=== PATIENT | female | born 1945 | race Caucasian/White ===

== ENCOUNTER 2019-02-19 09:00 | Inpatient (IN) | payer MEDICARE, OTHER ==
[2019-02-19 10:44] VITALS: BP 138/83
[2019-02-19] MEDS ORDERED: Magnesium Hydroxide (MOM) 30 mL UDC PO PRN (13:53)
--- NOTE | 2019-02-19 20:08 | History & Physical ---
ADMIT DATE: 02/19/2019 REQUESTING PHYSICIAN: Dr. Mak. CHIEF COMPLAINT: "I feel depressed and hopeless." HISTORY OF PRESENT ILLNESS: A 74-year-old female with history of hypertension, hyperlipidemia, osteoarthritis, depression, presented to Emergency Room at [facility] with suicidal ideation. The patient was evaluated and medically cleared and subsequently transferred to [facility] for psychiatric treatment. PAST MEDICAL HISTORY: Remarkable for: 1. Hypertension. 2. Hyperlipidemia. 3. Degenerative joint disease. 4. Osteoporosis. 5. Anxiety. 6. Vitamin B12 deficiency. MEDICATIONS AT HOME: She is taking B12, Xanax, atorvastatin, Ambien, carvedilol. ALLERGIES: The patient is not allergic to medication. SOCIAL HISTORY: The patient lives with the family. The patient has no history of smoking cigarette, alcohol, or drug abuse. FAMILY MEDICAL HISTORY: Remarkable for diabetes and hypertension. REVIEW OF SYSTEMS: The patient denies any headache, blurred vision, double vision, dysphagia, odynophagia, runny nose, stuffy nose, fever, chills, cough, chest pain, shortness of breath, palpitation, dizziness, nausea, vomiting, diarrhea, dysuria, hematuria, hematochezia, melena. No history of any seizure or syncopal episode. PHYSICAL EXAMINATION: GENERAL: Alert, awake, oriented, lying in the bed without any acute distress. VITAL SIGNS: Temperature 98.6, pulse is 68, respiratory rate 18, blood pressure 134/70. SKIN: Warm to touch. HEENT: Normocephalic, atraumatic. Extraocular muscles are intact. Tongue was pink and coated. Oropharynx is noncongested. Nasal mucosa is congested. No postnasal drip noted. NECK: Supple, no JVD, no hepatojugular reflex. No lymphadenopathy, thyromegaly or carotid bruit. HEART: Both heart sounds are regular. No S3, no S4. Grade 2/6 systolic murmur noted. CHEST AND LUNGS: Equal in expansion, no expiratory wheezing. ABDOMEN: Soft, no guarding, no rigidity. Liver, spleen palpable. Liver, spleen not palpable. No palpable mass. EXTREMITIES: No edema, no cyanosis or clubbing. Pulses are +2. No calf tenderness. NEUROLOGIC: Alert, awake and oriented to time, place, person. 2-12 cranial nerves are intact. Power in upper or lower extremities 5+. Sensation to touch intact. Babinski both toes are going down. No cerebral sign. AVAILABLE DIAGNOSTIC DATA: White count of 11.8, hemoglobin 14.2, platelet count of 229, potassium of 3.3, sodium of 135, BUN and creatinine are normal at 23 and 0.9. T4 is 1.2. Drug screen was negative. Troponin is negative. Liver functions are normal. EKG reveals sinus rhythm with occasional PACs, old Q-wave changes noted. There are changes representing acute ischemia. CLINICAL IMPRESSION: 1. Hypertension. 2. Hyperlipidemia. 3. Degenerative joint disease. 4. Osteoporosis. 5. Anxiety, depression. 6. Suicidal ideation. 7. Hypokalemia. PLAN: 1. Psychiatric evaluation, which include depression, anxiety and suicidal ideation. Management defer to psychiatrist. 2. Recheck the potassium. 3. Resume antihypertensive medicine and statins. Continue to provide general nursing care along with fall precautions, nutritional support, and we will continue to follow this patient during the stay in the hospital. I sincerely thank you, Dr. Mak, for giving me the opportunity to participate in patient of yours. JOB# [id number]
[2019-02-20] MEDS: Atorvastatin Calcium 10 MG TAB PO SCH (10:02)
--- NOTE | 2019-02-20 22:15 | Progress Notes ---
DATE: 02/20/2019 SUBJECTIVE: The patient seen and examined. The patient is lying in the bed. The patient currently denies any chest pain, shortness of breath, palpitations, dizziness, nausea, vomiting, headache. PHYSICAL EXAMINATION: VITAL SIGNS: Temperature 98.6, pulse 74, respiratory rate 18, blood pressure 130/88. HEENT: No facial asymmetry. Poor dentition noted. NECK: Supple. No JVD, no hepatojugular reflux. No lymphadenopathy, thyromegaly or carotid bruit. HEART: Both heart sounds are regular. No S3, no S4. CHEST AND LUNGS: Equal in expansion, no expiratory wheezing. ABDOMEN: Soft. Bowel sounds present. No palpable mass. EXTREMITIES: No edema. NEUROLOGIC: Nonfocal. CLINICAL IMPRESSION: 1. Hypertension. 2. Hyperlipidemia. 3. Degenerative joint disease. 4. Osteoporosis. 5. Anxiety, depression. 6. Psychotic disorder. PLAN: 1. Monitor blood pressure. 2. Antihypertensive medicine. 3. Statin. 4. Motrin p.r.n. for pain. 5. Psychotic evaluation and management deferred to psychiatrist. 6. Fall precaution. 7. Nutritional support. 8. Care plan reviewed and discussed with staff. JOB# [id number]
--- NOTE | 2019-02-21 00:21 | Psychiatric Evaluation ---
DATE OF SERVICE: 02/19/2019 PSYCHIATRIC EVALUATION AND EXAMINATION IDENTIFYING DATA: The patient is a 74-year-old woman referred over from home to [facility] from where she has been assessed and has been transferred over here for suicidal ideation. The patient is reporting that she has been feeling depressed at least for the past couple of months, more severe than before. The patient is reported to have been treated for depression at least for the past 3 years and is reporting ____ by Dr. Harry. The patient is reported to have been on phenelzine or Nardil for the past 2 weeks. The patient has stopped taking the medication 5 days ago. The patient's son has been contacted and has also gotten some information. Sleep and appetite prior to the hospitalization was reported to be very poor. The patient is reported to have been stopped eating and has been very tearful and crying and stating that she does not feel comfortable with her current living situation and she wants to end her life. The patient is very tearful and crying during the interview, the patient is also stating that she has been having extreme pain in the left side after the back surgery. The patient has been noted to be declining for the past 2 weeks and has feelings of helplessness and hopelessness. The patient's son is very much concerned and then brought her for evaluation. PAST PSYCHIATRIC HISTORY: The patient is reported to be followed up by a psychiatrist on an outpatient basis ____ is reported. SOCIAL HISTORY: The patient is reporting that she was living by herself and then she went to live with her son for a couple of weeks. MEDICAL HISTORY: Physical examination is requested to be done by Dr. Christopher. PAST PSYCHIATRIC HISTORY: Please refer to the above. MEDICAL HISTORY AND PHYSICAL EXAMINATION: Requested to be by Dr. Christopher. SUBSTANCE ABUSE HISTORY: None. PHYSICAL OR SEXUAL ABUSE HISTORY: None. 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 STRENGTH AND ASSETS: The patient is motivated. MENTAL STATUS EXAMINATION: The patient is a 74-year-old woman, thin built, cooperative. Eye contact is noted to be poor. Mood is noted to be depressed. Affect is constricted. The patient is tearful and crying. The patient is suicidal, but no clear plans are voiced. Insight and judgment at this time are noted to be impaired. Impulse control is noted to be limited. The patient's short term memory is noted to be poor. Long-term memory seems to be fair. The patient has been feeling frustrated with her living situation at this time. The patient is a clear danger to self at this time. DIAGNOSTIC IMPRESSION: AXIS I: Major depressive disorder, recurrent and severe. AXIS II: None. AXIS III: As per Dr. Christopher. IMMEDIATE TREATMENT PLAN: The patient is going to be observed on inpatient unit, provided with supportive psychotherapy. The patient is going to be closely monitored and encouraged to participate in the groups and verbalize the concerns. Once stabilized, the patient is going to be discharged to [facility] to be followed up on an outpatient basis. [facility]# [id number]
[2019-02-21] MEDS: Atorvastatin Calcium 10 MG TAB PO SCH (09:11)
--- NOTE | 2019-02-21 14:19 | Internal Medicine Prog Note ---
Internal Medicine Subjective - Subjective Patient seen and examined:: with staff, chart reviewed Patient is:: awake, verbal, interactive Per staff patient has:: no adverse event, other (co jt pain) Internal Medicine Objective - Physical Exam Vitals and I&O: Vital Signs Temp 97.3 F 02/20/19 20:33 Pulse 81 02/21/19 09:08 Resp 18 02/20/19 20:33 BP 164/103 02/21/19 09:08 Pulse Ox 98 02/20/19 20:33 Intake & Output 02/20/19 02/21/19 02/21/19 18:59 06:59 18:59 Intake Total 1000 240 Balance 1000 240 Intake: Oral 1000 240 Other: # Voids 3 1 # Bowel Movements 1 Active Medications: Current Medications Acetaminophen (Tylenol) 650 mg PO Q4H PRN PRN Reason: Mild Pain (Scale 1-3) Stop: 04/20/19 13:52 Last Admin: 02/21/19 00:30 Dose: 650 mg Acetaminophen (Tylenol) 650 mg PO Q4H PRN PRN Reason: headache Stop: 04/20/19 15:56 Acetaminophen (Tylenol) 650 mg PO Q4HR PRN PRN Reason: TEMP ABOVE 101 Stop: 04/20/19 16:06 Alprazolam (Xanax) 0.5 mg PO BID [facility]; Protocol Stop: 04/20/19 16:59 Last Admin: 02/21/19 08:56 Dose: 0.5 mg Atorvastatin Calcium (Lipitor) 10 mg PO DAILY [facility]; Protocol Stop: 04/21/19 08:59 Last Admin: 02/21/19 09:11 Dose: 10 mg Carvedilol (Coreg) 12.5 mg PO BID [facility] Stop: 04/21/19 08:59 Last Admin: 02/21/19 09:08 Dose: 12.5 mg Ibuprofen (Motrin) 400 mg PO Q8H PRN PRN Reason: pain Stop: 04/20/19 19:50 Last Admin: 02/21/19 06:43 Dose: 400 mg Magnesium Hydroxide (Milk Of Magnesia) 30 ml PO HS PRN PRN Reason: Constipation Stop: 04/20/19 13:52 Zolpidem Tartrate (Ambien) 5 mg PO HS PRN PRN Reason: Insomnia Stop: 04/20/19 14:10 Last Admin: 02/20/19 22:22 Dose: 5 mg General: alert HEENT: NC/AT, PERRLA, EOMI Neck: Supple, No JVD Lungs: CTAB Cardiovascular: RRR, Normal S1, Normal S2 Abdomen: soft, non-tender, non-distended Extremities: excoriation Internal Medicine Assmt/Plan - Assessment Assessment: htn hyperlipidemia djd oa osteoporosis hypokalemia - Plan Plan: will adjust pain medication will increase motrin fall precaution cpm gianfranco rn
--- NOTE | 2019-02-22 01:48 | Progress Notes ---
DATE: 02/21/2019 SUBJECTIVE: Staff was spoken to. The patient is interviewed. Mood is noted to be depressed. Affect is constricted. Insight and judgment are noted to be still impaired. Impulse control is noted to be limited. The patient is still insisting on ending her life. Coping skills at this time are noted to be poor. No side effects to the medications are noted. ASSESSMENT: The patient is still depressed. PLAN: To continue the patient with the supportive therapy, encouraged the patient to verbalize the concerns rather than to act out. The patient is going to be started on the Fenalgin. JOB# [id number]
[2019-02-22] MEDS: Atorvastatin Calcium 10 MG TAB PO SCH (09:54)
--- NOTE | 2019-02-22 11:18 | Consultation ---
DATE OF CONSULTATION: 02/21/2019 REFERRING PHYSICIAN: Luz Mak M.D. TYPE OF CONSULTATION: Psychology. HISTORY OF PRESENT ILLNESS: The patient is seen and evaluated. Case has been discussed with staff. The patient is a 74-year-old female. The patient was referred from home to [facility] due to verbalizing suicidal ideation. The following is by record review and by patient self report. The patient at the time of this interview reports that she has been depressed and has a history of depression. The patient is stating that this is becoming to be more of a problem and her depression is worsening. The patient states that she has been under the care of a psychiatrist in the past. The patient also stated that she had stopped taking her medication prior to the patient's admission. The patient states that she had become frustrated with her current living circumstances and wanted to end her life. Staff reports the patient has had multiple tearful and crying episodes. She is complaining of pain in her left side. The patient endorsed feelings of helplessness and hopelessness. She admits a passive suicidal ideation at the time of this clinical interview. PAST MEDICAL HISTORY: Please see history and physical by Dr. Christopher. PAST PSYCHIATRIC HISTORY: The patient has been under the care of a psychiatrist on an outpatient basis. The patient did not provide the psychiatrist's name. The patient stated no psychology services or any psychotherapy recently. The patient has a long history of major depression. SUBSTANCE ABUSE HISTORY: The patient denied any history of alcohol, tobacco or illicit drug use. PSYCHOSOCIAL HISTORY: The patient states that her son is very involved in her care. The patient states her son's name is Rohan and has visited her here in the hospital and will be involved in her discharge. The patient states that she is Evangelical and . 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 The patient did not state whether she was licensed. 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 The patient lives by herself and had been living with her son briefly for the last 2 or more weeks. She plans to return home. MENTAL STATUS EXAMINATION: The patient appears to be frail and thinly built. Eye contact is poor. Speech is slow, but responsive. Attitude is cooperative. Mood is depressed. Affect is labile with tearful or crying episodes in the past. The patient admits having suicidal ideation; however, she did not state any particular plan or means. She endorsed the feeling of hopelessness. The patient denied any auditory or visual hallucinations. The patient's behavior has been proactive with her care here. Impulse control is limited. The patient was unable to repeat 2 of 3 items given to her after several minutes. Short-term memory appears to be poor. Long-term memory seems to be adequate for her age. The patient continued to state frustration with her living circumstances. The patient did not participate in the interpretation of proverbs. Insight is poor. Judgment is compromised. DIAGNOSTIC IMPRESSION AXIS I: Major depressive disorder, recurrent, severe. AXIS II: None. AXIS III: Per Dr. Christopher. TREATMENT PLAN: The patient has been seen by Dr. Mak for psychiatric evaluation and for the management of the patient's psychotropic medications. We will provide supportive psychotherapy to include suicidal assessment as well as suicide prevention interventions. We will encourage the patient to verbalize her concerns or any suicidal thoughts to staff. We will encourage the patient to ventilate her feelings of hopelessness and helplessness and participate in the psychotherapeutic interventions versus taking any self-harm actions. We provided the patient the opportunity to verbally contract for no self-harm and for safety. The patient was able to do this on the unit. We recommend follow up with a psychologist post-discharge. We will provide cognitive behavioral therapy to reduce the patient's depression and encourage her to stay compliant with her medication as she has admitted that she abruptly ceased taking her medications recently, which may have precipitated this passive suicidal thought and her hospitalization. Thank you, Dr. Mak for this consult and the opportunity to participate with you in this patient's care. JOB# [id number] BHAVYA
--- NOTE | 2019-02-22 15:39 | Internal Medicine Prog Note ---
Internal Medicine Subjective - Subjective Patient seen and examined:: with staff, chart reviewed Patient is:: awake, verbal, interactive Per staff patient has:: no adverse event, other (co jt pain) Internal Medicine Objective - Physical Exam Vitals and I&O: Vital Signs Temp 97.6 F 02/22/19 07:30 Pulse 71 02/22/19 09:55 Resp 20 02/22/19 07:30 BP 171/99 02/22/19 09:55 Pulse Ox 100 02/22/19 07:30 Intake & Output 02/21/19 02/22/19 02/22/19 18:59 06:59 18:59 Intake Total 1000 120 120 Balance 1000 120 120 Intake: Oral 760 120 120 Other 240 Other: # Voids 3 2 3 # Bowel Movements 1 0 0 Stool Characteristics Formed Brown Active Medications: Current Medications Acetaminophen (Tylenol) 650 mg PO Q4H PRN PRN Reason: Mild Pain (Scale 1-3) Stop: 04/20/19 13:52 Last Admin: 02/21/19 00:30 Dose: 650 mg Acetaminophen (Tylenol) 650 mg PO Q4H PRN PRN Reason: headache Stop: 04/20/19 15:56 Acetaminophen (Tylenol) 650 mg PO Q4HR PRN PRN Reason: TEMP ABOVE 101 Stop: 04/20/19 16:06 Alprazolam (Xanax) 0.5 mg PO BID [facility]; Protocol Stop: 04/20/19 16:59 Last Admin: 02/22/19 09:55 Dose: 0.5 mg Atorvastatin Calcium (Lipitor) 10 mg PO DAILY [facility]; Protocol Stop: 04/21/19 08:59 Last Admin: 02/22/19 09:54 Dose: 10 mg Carvedilol (Coreg) 12.5 mg PO BID [facility] Stop: 04/21/19 08:59 Last Admin: 02/22/19 09:55 Dose: 12.5 mg Ibuprofen (Motrin) 600 mg PO Q8H PRN PRN Reason: Moderate pain (Scale 4-6) Stop: 04/20/19 19:50 Last Admin: 02/22/19 05:42 Dose: 600 mg Magnesium Hydroxide (Milk Of Magnesia) 30 ml PO HS PRN PRN Reason: Constipation Stop: 04/20/19 13:52 Zolpidem Tartrate (Ambien) 5 mg PO HS PRN PRN Reason: Insomnia Stop: 04/20/19 14:10 Last Admin: 02/21/19 20:44 Dose: 5 mg General: alert HEENT: NC/AT, PERRLA, EOMI Neck: Supple, No JVD Lungs: CTAB Cardiovascular: RRR, Normal S1, Normal S2 Abdomen: soft, non-tender, non-distended Extremities: excoriation Internal Medicine Assmt/Plan - Assessment Assessment: htn hyperlipidemia djd oa osteoporosis hypokalemia - Plan Plan: will adjust pain medication will increase motrin fall precaution cpm dw rn
--- NOTE | 2019-02-22 19:32 | Progress Notes ---
DATE: 02/22/2019 PSYCHIATRIC PROGRESS NOTE SUBJECTIVE: Staff was spoken to. The patient is interviewed. Mood is noted to be irritable. Affect is constricted. Insight and judgment at this time are noted to be still impaired. Impulse control is noted to be limited. The patient's son does not want the patient to be started on any medications. Coping skills at this time are noted to be still poor. The patient is still depressed. The patient's son thinks that it is the phenelzine that made her to be confused and he wants to be off of any medications. Since phenelzine happens to be the monoamine oxidase inhibitor, I cannot start any antidepressant medication at this time. The patient is going to be closely monitored. I encouraged to verbalize the concerns rather than to act out at this time. JOB# [id number]
[2019-02-23] MEDS: Atorvastatin Calcium 10 MG TAB PO SCH (08:11)
--- NOTE | 2019-02-23 16:32 | Internal Medicine Prog Note ---
Internal Medicine Subjective - Subjective Patient seen and examined:: with staff, chart reviewed Patient is:: awake, verbal, interactive Per staff patient has:: no adverse event, other (co jt pain) Internal Medicine Objective - Physical Exam Vitals and I&O: Vital Signs Temp 97.7 F 02/23/19 14:06 Pulse 75 02/23/19 14:06 Resp 18 02/23/19 14:06 BP 147/95 02/23/19 14:06 Pulse Ox 100 02/23/19 14:06 Intake & Output 02/22/19 02/23/19 02/23/19 18:59 06:59 18:59 Intake Total 1320 120 Balance 1320 120 Intake: Oral 1200 120 Other 120 Other: # Voids 3 2 # Bowel Movements 1 Stool Characteristics Formed Formed Brown Brown Active Medications: Current Medications Acetaminophen (Tylenol) 650 mg PO Q4H PRN PRN Reason: Mild Pain (Scale 1-3) Stop: 04/20/19 13:52 Last Admin: 02/21/19 00:30 Dose: 650 mg Acetaminophen (Tylenol) 650 mg PO Q4H PRN PRN Reason: headache Stop: 04/20/19 15:56 Acetaminophen (Tylenol) 650 mg PO Q4HR PRN PRN Reason: TEMP ABOVE 101 Stop: 04/20/19 16:06 Alprazolam (Xanax) 0.5 mg PO BID [facility]; Protocol Stop: 04/20/19 16:59 Last Admin: 02/23/19 08:12 Dose: 0.5 mg Atorvastatin Calcium (Lipitor) 10 mg PO DAILY [facility]; Protocol Stop: 04/21/19 08:59 Last Admin: 02/23/19 08:11 Dose: 10 mg Carvedilol (Coreg) 12.5 mg PO BID SAL Stop: 04/21/19 08:59 Last Admin: 02/23/19 09:02 Dose: 12.5 mg Ibuprofen (Motrin) 600 mg PO Q8H PRN PRN Reason: Moderate pain (Scale 4-6) Stop: 04/20/19 19:50 Last Admin: 02/23/19 08:11 Dose: 600 mg Magnesium Hydroxide (Milk Of Magnesia) 30 ml PO HS PRN PRN Reason: Constipation Stop: 04/20/19 13:52 Zolpidem Tartrate (Ambien) 5 mg PO HS PRN PRN Reason: Insomnia Stop: 04/20/19 14:10 Last Admin: 02/22/19 21:28 Dose: 5 mg General: alert HEENT: NC/AT, PERRLA, EOMI Neck: Supple, No JVD Lungs: CTAB Cardiovascular: RRR, Normal S1, Normal S2 Abdomen: soft, non-tender, non-distended Extremities: excoriation Internal Medicine Assmt/Plan - Assessment Assessment: htn hyperlipidemia djd oa osteoporosis hypokalemia - Plan Plan: will adjust pain medication will increase motrin fall precaution cpm dw rn
[2019-02-24] MEDS: Atorvastatin Calcium 10 MG TAB PO SCH (08:48)
--- NOTE | 2019-02-24 11:13 | Progress Notes ---
DATE: 02/23/2019 PSYCHOLOGY PROGRESS NOTE SUBJECTIVE: The patient is seen and is interviewed. Case is discussed with staff. The patient presents as irritable as well as dismissive and somewhat resistant. Affect is constricted. The patient's impulse control is limited. Insight is still somewhat impaired. The patient did admit that she is depressed. The family has spoken with the attending psychiatrist and with the staff regarding medications. The patient's son is involved in her care and is concerned about the type of medication. ASSESSMENT: The patient continues to be agitated as well as guarded and suspicious at times. The patient continues to be depressed. PLAN: The patient's son is involved in the patient's care and has been discussing with the attending psychiatrist about medication changes. This is an ongoing consultation with family and the attending/admitting psychiatrist. We will provide coping strategies for phase of life issues. We will provide de-escalation and motivation al enhancement for the patient to become compliant and to become less agitated as well as follow through with staff direction. We will provide cognitive behavioral therapy if the patient is able to demonstrate capacity to participate as well as benefit from this type of psychotherapeutic intervention, which is designed to reduce the patient's depression. We will provide conflict resolution as well as problem solving and solution focused therapy as well. This sba underwriter will follow up in 2-3 days to continue the present treatment if the patient remains admitted on the unit. JOB# [id number] BHAVYA
--- NOTE | 2019-02-24 15:07 | Internal Medicine Prog Note ---
Internal Medicine Subjective - Subjective Service Date: 02/24/19 Patient is:: awake, verbal, interactive Per staff patient has:: no adverse event, other (co jt pain) Internal Medicine Objective - Physical Exam Vitals and I&O: Vital Signs Temp 97.1 F 02/24/19 14:34 Pulse 72 02/24/19 14:34 Resp 20 02/24/19 14:34 BP 162/90 02/24/19 14:34 Pulse Ox 99 02/24/19 14:34 Intake & Output 02/23/19 02/24/19 02/24/19 18:59 06:59 18:59 Intake Total 220 Balance 220 Intake: Oral 220 Other: # Voids 1 # Bowel Movements 1 Stool Characteristics Formed Formed Brown Brown Active Medications: Current Medications Acetaminophen (Tylenol) 650 mg PO Q4H PRN PRN Reason: Mild Pain (Scale 1-3) Stop: 04/20/19 13:52 Last Admin: 02/21/19 00:30 Dose: 650 mg Acetaminophen (Tylenol) 650 mg PO Q4H PRN PRN Reason: headache Stop: 04/20/19 15:56 Acetaminophen (Tylenol) 650 mg PO Q4HR PRN PRN Reason: TEMP ABOVE 101 Stop: 04/20/19 16:06 Alprazolam (Xanax) 0.5 mg PO BID [facility]; Protocol Stop: 04/20/19 16:59 Last Admin: 02/24/19 08:48 Dose: 0.5 mg Atorvastatin Calcium (Lipitor) 10 mg PO DAILY [facility]; Protocol Stop: 04/21/19 08:59 Last Admin: 02/24/19 08:48 Dose: 10 mg Carvedilol (Coreg) 12.5 mg PO BID SAL Stop: 04/21/19 08:59 Last Admin: 02/24/19 08:48 Dose: 12.5 mg Ibuprofen (Motrin) 600 mg PO Q8H PRN PRN Reason: Moderate pain (Scale 4-6) Stop: 04/20/19 19:50 Last Admin: 02/24/19 09:06 Dose: 600 mg Magnesium Hydroxide (Milk Of Magnesia) 30 ml PO HS PRN PRN Reason: Constipation Stop: 04/20/19 13:52 Zolpidem Tartrate (Ambien) 5 mg PO HS PRN PRN Reason: Insomnia Stop: 04/20/19 14:10 Last Admin: 02/23/19 21:11 Dose: 5 mg General: alert HEENT: NC/AT, PERRLA, EOMI Neck: Supple, No JVD Lungs: CTAB Cardiovascular: RRR, Normal S1, Normal S2 Abdomen: soft, non-tender, non-distended Extremities: excoriation Internal Medicine Assmt/Plan - Assessment Assessment: htn hyperlipidemia djd oa osteoporosis - Plan Plan: will adjust pain medication will increase motrin fall precaution cpm dw rn Nutritional Asmnt/Malnutr-PDOC - Dietary Evaluation Malnutrition Findings (Please click <Entered> for more info): Nutritional Asmnt/Malnutrition Start: 02/24/19 12: 45 Text: Status: Complete Freq: Protocol: Document 02/24/19 12:45 MMULYULI (Rec: 02/24/19 12:53 [email or web address] TUCKER- [email or web address]) Nutritional Asmnt/Malnutrition Patient General Information Nutritional Screening Low Risk Diagnosis Psychosis Pertinent Medical Hx/Surgical Hx Hypertension, hyperlipidemia, osteoarthritis, depression Subjective Information Patient was admitted to ER with suicidal ideation. Patient in bed reading at time of visit. Tolerating current diet order with adequate intake. Will honor patients food preferences. Patient did not appear to be 6 ft 6 in tall as stated in EMR; likely 66 in (5ft 6in). Current Diet Order/ Nutrition Support Regular Patient / S.O Not Indicated Pertinent Medications Lipitor, MOM Pertinent Labs Nutrition related labs WNL Nutritional Hx/Data Height 5 ft 6 in Height (Calculated Centimeters) 167.6 Current Weight (lbs) 146 lb Weight (Calculated Kilograms) 66.2 Weight (Calculated Grams) 39131.5 Body Mass Index (BMI) 23.6 Recent Weight Change No Weight Status Approriate GI Symptoms GI Symptoms None Last BM 02/24 x 1 Difficult in: None Food Allergies Yes: Milk Cultural/Ethnic/Muslim Belief none indicated Usual diet at home regular Skin Integrity/Comment: Trent 21, Intact Current %PO Good (75-100%) Estimated Nutritional Goals BEE in Kcals: Using Current wt Calories/Kcals/Kg 66.3kg CBW 25-30 kcal/kg Kcals Calculated ~4512-7496 kcal/day Protein: Using Current wt Protein g/k-1.2 gm/kg Protein Calculated ~65-80 gm/day Fluid: ml ~6771-9703 ml/day (1 ml/kcal) Nutritional Problem No current Nutrition Prob Problem No nutrition diagnosis at this time Intervention/Recommendation Comments 1. Continue regular diet as tolerated by patient. Expected Outcomes/Goals Expected Outcomes/Goals Oral intake >75% of meals, weight stable, nutrition related labs WNL F/U LR 7-10 days 03/04-
--- NOTE | 2019-02-24 21:19 | Progress Notes ---
DATE: 02/24/2019 PSYCHIATRIC PROGRESS NOTE SUBJECTIVE: Staff was spoken to. The patient is interviewed. Mood is noted to be anxious. The patient's insight and judgment are noted to be improving. Impulse control seems to be fair. No side effects to the medications are noted. The patient has been able to verbalize the concerns rather than to act out. The patient's coping skills at this time are noted to be improving. The patient is stating that she would rather not take any psychotropic medications and would like to go for counseling rather than taking the medications at this time. ASSESSMENT: The patient is going to be closely monitored. I encouraged to verbalize the concerns rather than to act out at this time. PLAN: To monitor the patient and followup. [facility]# [id number]
[2019-02-25] MEDS: Atorvastatin Calcium 10 MG TAB PO SCH (08:21)
--- NOTE | 2019-02-25 13:11 | Internal Medicine Prog Note ---
Internal Medicine Subjective - Subjective Service Date: 02/25/19 Patient is:: awake, verbal, interactive Per staff patient has:: no adverse event, other (co jt pain) Internal Medicine Objective - Physical Exam Vitals and I&O: Vital Signs Temp 98.0 F 02/25/19 06:22 Pulse 95 02/25/19 08:21 Resp 18 02/25/19 06:22 BP 147/99 02/25/19 08:21 Pulse Ox 96 02/25/19 06:22 Intake & Output 02/24/19 02/25/19 02/25/19 18:59 06:59 18:59 Intake Total 1000 240 Balance 1000 240 Intake: Oral 1000 240 Other: # Voids 4 1 # Bowel Movements 1 Stool Characteristics Formed Brown Active Medications: Current Medications Acetaminophen (Tylenol) 650 mg PO Q4H PRN PRN Reason: Mild Pain (Scale 1-3) Stop: 04/20/19 13:52 Last Admin: 02/21/19 00:30 Dose: 650 mg Acetaminophen (Tylenol) 650 mg PO Q4H PRN PRN Reason: headache Stop: 04/20/19 15:56 Acetaminophen (Tylenol) 650 mg PO Q4HR PRN PRN Reason: TEMP ABOVE 101 Stop: 04/20/19 16:06 Alprazolam (Xanax) 0.5 mg PO BID [facility]; Protocol Stop: 04/20/19 16:59 Last Admin: 02/25/19 08:21 Dose: 0.5 mg Atorvastatin Calcium (Lipitor) 10 mg PO DAILY [facility]; Protocol Stop: 04/21/19 08:59 Last Admin: 02/25/19 08:21 Dose: 10 mg Carvedilol (Coreg) 12.5 mg PO BID [facility] Stop: 04/21/19 08:59 Last Admin: 02/25/19 08:21 Dose: 12.5 mg Ibuprofen (Motrin) 600 mg PO Q8H PRN PRN Reason: Moderate pain (Scale 4-6) Stop: 04/20/19 19:50 Last Admin: 02/25/19 08:34 Dose: 600 mg Magnesium Hydroxide (Milk Of Magnesia) 30 ml PO HS PRN PRN Reason: Constipation Stop: 04/20/19 13:52 Zolpidem Tartrate (Ambien) 5 mg PO HS PRN PRN Reason: Insomnia Stop: 04/20/19 14:10 Last Admin: 02/24/19 21:05 Dose: 5 mg General: alert HEENT: NC/AT, PERRLA, EOMI Neck: Supple, No JVD Lungs: CTAB Cardiovascular: RRR, Normal S1, Normal S2 Abdomen: soft, non-tender, non-distended Extremities: excoriation Internal Medicine Assmt/Plan - Assessment Assessment: htn hyperlipidemia djd oa osteoporosis - Plan Plan: will adjust pain medication will increase motrin fall precaution cpm dw rn Nutritional Asmnt/Malnutr-PDOC - Dietary Evaluation Malnutrition Findings (Please click <Entered> for more info): Nutritional Asmnt/Malnutrition Start: 02/24/19 12: 45 Text: Status: Complete Freq: Protocol: Document 02/24/19 12:45 MMULHERN (Rec: 02/24/19 12:53 [email or web address] CAITLIN- [email or web address]) Nutritional Asmnt/Malnutrition Patient General Information Nutritional Screening Low Risk Diagnosis Psychosis Pertinent Medical Hx/Surgical Hx Hypertension, hyperlipidemia, osteoarthritis, depression Subjective Information Patient was admitted to ER with suicidal ideation. Patient in bed reading at time of visit. Tolerating current diet order with adequate intake. Will honor patients food preferences. Patient did not appear to be 6 ft 6 in tall as stated in EMR; likely 66 in (5ft 6in). Current Diet Order/ Nutrition Support Regular Patient / S.O Not Indicated Pertinent Medications Lipitor, MOM Pertinent Labs Nutrition related labs WNL Nutritional Hx/Data Height 5 ft 6 in Height (Calculated Centimeters) 167.6 Current Weight (lbs) 146 lb Weight (Calculated Kilograms) 66.2 Weight (Calculated Grams) 93448.5 Body Mass Index (BMI) 23.6 Recent Weight Change No Weight Status Approriate GI Symptoms GI Symptoms None Last BM 02/24 x 1 Difficult in: None Food Allergies Yes: Milk Cultural/Ethnic/Adventism Belief none indicated Usual diet at home regular Skin Integrity/Comment: Trent 21, Intact Current %PO Good (75-100%) Estimated Nutritional Goals BEE in Kcals: Using Current wt Calories/Kcals/Kg 66.3kg CBW 25-30 kcal/kg Kcals Calculated ~4213-3696 kcal/day Protein: Using Current wt Protein g/k-1.2 gm/kg Protein Calculated ~65-80 gm/day Fluid: ml ~2920-7482 ml/day (1 ml/kcal) Nutritional Problem No current Nutrition Prob Problem No nutrition diagnosis at this time Intervention/Recommendation Comments 1. Continue regular diet as tolerated by patient. Expected Outcomes/Goals Expected Outcomes/Goals Oral intake >75% of meals, weight stable, nutrition related labs WNL F/U LR 7-10 days 03/04-
[2019-02-26] MEDS: Atorvastatin Calcium 10 MG TAB PO SCH (08:33)
== END 2019-02-26 10:10 | disposition home or self-care (01) | DRG 885 ==
LOC: GERO 09:00
PROVIDERS: ADMIT Psychiatry & Neurology Psychiatry; ATTEND Psychiatry & Neurology Psychiatry
DX: F33.2 Major depressive disorder, recurrent severe without psychotic features (principal); I10 Essential (primary) hypertension; E78.5 Hyperlipidemia, unspecified; M19.90 Unspecified osteoarthritis, unspecified site; M81.0 Age-related osteoporosis without current pathological fracture; F41.9 Anxiety disorder, unspecified; E87.6 Hypokalemia; F29 Unspecified psychosis not due to a substance or known physiological condition; E53.8 Deficiency of other specified B group vitamins; Z82.49 Family history of ischemic heart disease and other diseases of the circulatory system; Z83.3 Family history of diabetes mellitus
CPT/HCPCS: 83036-90; G0410; Z7610